=== PATIENT | female | born 1935 | race Caucasian/White ===

== ENCOUNTER → 2021-07-01 14:21 | Outpatient (CLI) | payer MEDICARE, SELFPAY ==
[2021-07-01 16:08] LABS: Hemoglobin A1C 6.2 % (4.0-6.0)
[2021-07-01 16:25] LABS: Chloride 102 mmol/L (98-107); Potassium 4.3 mmoL/L (3.5-5.1); Sodium 139 mmol/L (136-145)
[2021-07-01 16:27] LABS: Alanine Aminotransferase 16 U/L (12-78); Aspartate Amino Transferase 34 U/L (14-36); Blood Urea Nitrogen 18 mg/dl (7-17); Estimated Glomerular Filt Rate 80 ml/min (>60); GFR (African American) 96 ML/MIN (>60)
[2021-07-01 16:28] LABS: Albumin/Globulin Ratio 1.5 (1.1-1.8); Alkaline Phosphatase 51 U/L (38-126); Anion Gap 10.3 mEq/L (5-15); Bilirubin,Total 0.3 mg/dl (0.2-1.3); Calcium 9.7 mg/dl (8.4-10.2); Carbon Dioxide 31 mmol/L (22.0-30.0); Chol/HDL Ratio 3.1 (1-3.5); Cholesterol 201 mg/dl (140-200); Globulin 2.6 g/dL (1.3-3.2); Glucose 118 mg/dl (74-100); HDL Cholesterol 64 mg/dl (40-60); Total Protein,Serum 6.6 g/dl (6.3-8.2); Triglycerides 80 mg/dl (30-150); VLDL Cholesterol 16 mg/dL (0-40)
[2021-07-01 16:59] LABS: Thyroid Stimulating Hormone 3.35 uIU/mL (0.465-4.68)
== END ==
PROVIDERS: Visit Provider Internal Medicine
DX: I10 Essential (primary) hypertension (principal); E11.9 Type 2 diabetes mellitus without complications; E78.5 Hyperlipidemia, unspecified; E03.9 Hypothyroidism, unspecified
CPT/HCPCS: 80053; 80061; 83036; 84443

== ENCOUNTER → 2022-01-06 12:23 | Outpatient (CLI) | payer MEDICARE, SELFPAY ==
[2022-01-06 13:35] LABS: Basophils % 0.6 % (0.1-2.0); Eosinophils # 0.1 K/mm3 (0.0-0.4); Eosinophils % 1.8 % (0.1-12.0); Hematocrit 43.4 % (37.0-47.0); Hemoglobin 14.1 g/dL (12.2-16.2); Lymphocytes # 2.3 K/mm3 (0.7-4.5); Lymphocytes % 36.4 % (10-50); Mean Corpuscular HGB Conc 32.4 g/dL (31.8-35.4); Mean Corpuscular Hemoglobin 33.2 pg (27.0-31.2); Mean Corpuscular Volume 102.5 fl (81-99); Mean Platelet Volume 10.3 fl (7.4-10.4); Monocytes # 0.4 K/mm3 (0.1-1.0); Monocytes % 5.9 % (1.7-9.3); Neutrophils # 3.5 K/mm3 (1.8-7.8); Neutrophils % 55.2 % (37.0-80.0); Platelet Count 245 K/mm3 (142-424); Red Blood Count 4.23 M/mm3 (4.20-5.40); White Blood Count 6.3 K/mm3 (4.8-10.8)
[2022-01-06 13:58] LABS: Chloride 105 mmol/L (98-107); Potassium 3.6 mmoL/L (3.5-5.1); Sodium 139 mmol/L (136-145)
[2022-01-06 14:00] LABS: Blood Urea Nitrogen 12 mg/dl (7-17); Estimated Glomerular Filt Rate 80 ml/min (>60); GFR (African American) 96 ML/MIN (>60)
[2022-01-06 14:01] LABS: Alanine Aminotransferase 20 U/L (12-78); Albumin Level 3.9 g/dl (3.5-5.0); Albumin/Globulin Ratio 1.5 (1.1-1.8); Alkaline Phosphatase 48 U/L (38-126); Anion Gap 10.6 mEq/L (5-15); Aspartate Amino Transferase 32 U/L (14-36); Bilirubin,Total 0.4 mg/dl (0.2-1.3); Calcium 9.7 mg/dl (8.4-10.2); Carbon Dioxide 27 mmol/L (22.0-30.0); Chol/HDL Ratio 2.9 (1-3.5); Cholesterol 199 mg/dl (140-200); Globulin 2.6 g/dL (1.3-3.2); Glucose 143 mg/dl (74-100); HDL Cholesterol 69 mg/dl (40-60); Total Protein,Serum 6.5 g/dl (6.3-8.2); Triglycerides 77 mg/dl (30-150); VLDL Cholesterol 15 mg/dL (0-40)
[2022-01-06 14:24] LABS: Direct LDL Cholesterol 98.74 mg/dL (100-129)
[2022-01-06 15:25] LABS: Hemoglobin A1C 6.3 % (4.0-6.0)
[2022-01-07 15:07] LABS: Vitamin B12 734 pg/mL (239-931)
== END ==
PROVIDERS: PCP Internal Medicine; Visit Provider Internal Medicine
DX: I10 Essential (primary) hypertension (principal); E11.9 Type 2 diabetes mellitus without complications; E78.5 Hyperlipidemia, unspecified
CPT/HCPCS: 80053; 80061; 82043; 82607; 83036; 85025

== ENCOUNTER → 2022-07-14 12:19 | Outpatient (CLI) | payer MEDICARE, SELFPAY ==
[2022-07-14 13:40] LABS: Hemoglobin A1C 6.3 % (4.0-6.0)
[2022-07-14 14:53] LABS: Alanine Aminotransferase 30 U/L (12-78); Albumin Level 4.1 g/dl (3.5-5.0); Albumin/Globulin Ratio 1.7 (1.1-1.8); Alkaline Phosphatase 66 U/L (38-126); Anion Gap 9.3 mEq/L (5-15); Aspartate Amino Transferase 36 U/L (14-36); Bilirubin,Total 0.3 mg/dl (0.2-1.3); Blood Urea Nitrogen 19 mg/dl (7-17); Calcium 9.7 mg/dl (8.4-10.2); Carbon Dioxide 31 mmol/L (22.0-30.0); Chloride 104 mmol/L (98-107); Chol/HDL Ratio 2.7 (1-3.5); Cholesterol 196 mg/dl (140-200); Estimated Glomerular Filt Rate 68 ml/min (>60); GFR (African American) 82 ML/MIN (>60); Globulin 2.4 g/dL (1.3-3.2); Glucose 107 mg/dl (74-100); HDL Cholesterol 72 mg/dl (40-60); Potassium 4.3 mmoL/L (3.5-5.1); Sodium 140 mmol/L (136-145); Total Protein,Serum 6.5 g/dl (6.3-8.2); Triglycerides 61 mg/dl (30-150); VLDL Cholesterol 12 mg/dL (0-40)
== END ==
PROVIDERS: PCP Internal Medicine; Visit Provider Internal Medicine
DX: E11.9 Type 2 diabetes mellitus without complications (principal); E78.5 Hyperlipidemia, unspecified; I10 Essential (primary) hypertension; F41.9 Anxiety disorder, unspecified
CPT/HCPCS: 80053; 80061; 83036

== ENCOUNTER → 2023-01-12 13:35 | Outpatient (CLI) | payer MEDICARE, SELFPAY ==
[2023-01-12 15:19] LABS: Basophils % 0.4 % (0.1-2.0); Eosinophils # 0.1 K/mm3 (0.0-0.4); Hematocrit 42.3 % (37.0-47.0); Hemoglobin 13.7 g/dL (12.2-16.2); Lymphocytes # 2.1 K/mm3 (0.7-4.5); Lymphocytes % 35.2 % (10-50); Mean Corpuscular HGB Conc 32.3 g/dL (31.8-35.4); Mean Corpuscular Hemoglobin 32.2 pg (27.0-31.2); Mean Corpuscular Volume 99.7 fl (81-99); Mean Platelet Volume 10.6 fl (7.4-10.4); Monocytes # 0.4 K/mm3 (0.1-1.0); Monocytes % 6.6 % (1.7-9.3); Neutrophils # 3.4 K/mm3 (1.8-7.8); Neutrophils % 55.7 % (37.0-80.0); Platelet Count 231 K/mm3 (142-424); Red Blood Count 4.25 M/mm3 (4.20-5.40); Red Cell Distribution Width 12.7 % (11.5-17.5)
[2023-01-12 15:27] LABS: Creatinine,Urine Random 105 mg/dL (Not Estab.)
[2023-01-12 15:33] LABS: Microalbumin/Creatinine Ratio 9.5
[2023-01-12 15:52] LABS: Alanine Aminotransferase 28 U/L (12-78); Albumin Level 3.9 g/dl (3.5-5.0); Albumin/Globulin Ratio 1.5 (1.1-1.8); Alkaline Phosphatase 50 U/L (38-126); Anion Gap 13.7 mEq/L (5-15); Aspartate Amino Transferase 34 U/L (14-36); Bilirubin,Total 0.6 mg/dl (0.2-1.3); Blood Urea Nitrogen 20 mg/dl (7-17); Calcium 9.3 mg/dl (8.4-10.2); Carbon Dioxide 28 mmol/L (22.0-30.0); Chloride 104 mmol/L (98-107); Cholesterol 183 mg/dl (140-200); Estimated Glomerular Filt Rate 59 ml/min (>60); GFR (African American) 72 ML/MIN (>60); Globulin 2.6 g/dL (1.3-3.2); Glucose 115 mg/dl (74-100); HDL Cholesterol 62 mg/dl (40-60); Potassium 3.7 mmoL/L (3.5-5.1); Sodium 142 mmol/L (136-145); Total Protein,Serum 6.5 g/dl (6.3-8.2); Triglycerides 85 mg/dl (30-150); VLDL Cholesterol 17 mg/dL (0-40)
[2023-01-12 16:03] LABS: Direct LDL Cholesterol 90.35 mg/dL (100-129)
[2023-01-12 16:20] LABS: Thyroid Stimulating Hormone 1.32 uIU/mL (0.465-4.68)
== END ==
PROVIDERS: PCP Internal Medicine; Visit Provider Internal Medicine
DX: E11.9 Type 2 diabetes mellitus without complications (principal); E03.9 Hypothyroidism, unspecified; E78.5 Hyperlipidemia, unspecified; I10 Essential (primary) hypertension; M15.0 Primary generalized (osteo)arthritis
CPT/HCPCS: 80053; 80061; 82043; 82570; 83036; 84443; 85025

== ENCOUNTER 2023-07-17 23:35 | Emergency (ER) | payer MEDICARE, SELFPAY ==
[2023-07-17 23:45] VITALS: BP 171/84; PULSE 68; RESP 19; TEMP 36.8; O2SAT 98; BMI 22.4
--- NOTE | 2023-07-17 23:52 | [facility].EDGENADL ---
Discharge Plan Disposition Patient Disposition: Home, Self-Care Prescriptions Prescriptions: No Action losartan-hydrochlorothiazide 100-25 mg tablet 1 tab PO DAILY Patient Comments: TAKE 1 TABLET BY MOUTH DAILY levothyroxine 88 mcg tablet 88 mcg PO DAILY Patient Comments: TAKE 1 TABLET BY MOUTH EVERY MORNING FOR THYROID Referrals Follow up/Referrals: Emiliano Baltazar MD [Primary Care Provider] - See instructions Activity Restrictions/Add. Instructions Additional Instructions/Restrictions: Please follow-up with your primary care provider. Please return to the emergency department if you develop any new or worsening symptoms or become concerned for your health. Clinical Impressions Clinical Impression: Asymptomatic hypertension Discharge ED Provider: Chris Navarro General Adult HPI General Chief complaint: Recheck/Abnormal Lab/Rx Stated complaint: high blood pressure Time Seen by Provider: 07/17/23 23:44 Mode of Arrival: Family Vehicle Source of Information: Patient Limitations: No Limitations Description of Symptoms (Recalled from ER Triage Doc. by RN): 87 yo female presents with CC high blood pressure. States she took her bp at home and it was >200 on the top number several times. Advised staff she had seen an SENIOR ACCOUNTANT earlier who discussed what constitued a hypertensive emergency and thought she should come in for eval. States I just need something to calm me down . History of Present Illness HPI narrative: 87-year-old female, history of hypertension and hypothyroidism presents with hypertension. She reports that she got some bad news recently and it has made her upset. She reports that her blood pressure has been up and down over the last couple of days. She reports specifically that it was been over 200 earlier today and so she came in for further evaluation. She denies any headache vision change chest pain shortness of breath lower extremity edema or any other associated symptoms. She reports that she has been stable on her blood pressure medication for a long time. She takes losartan/HCTZ. She has a follow-up appointment scheduled with her PCP on Thursday. Related Data Home Medications Medication Instructions Recorded Confirmed levothyroxine 88 mcg tablet 88 mcg PO DAILY 07/15/23 07/15/23 losartan 100 1 tab PO DAILY 07/15/23 07/15/23 mg-hydrochlorothiazide 25 mg tablet Allergies Allergy/AdvReac Type Severity Reaction Status Date / Time No Known Allergies Allergy Verified 07/15/23 14:44 [facility] Disclaimer: The information contained in this section may have been updated after the patient was seen, as this information can be updated by other users. Medical History (Updated 07/17/23 @ 23:52 by Chris Navaror MD) Hypertension Hyperthyroidism Surgical History (Updated 07/15/23 @ 14:50 by Charlee Harrison) No significant past surgical history Family History (Updated 07/15/23 @ 14:50 by Charlee Harrison) Other No significant family history Social History (Updated 07/15/23 @ 14:50 by Charlee Harrison) Smoking Status: Unknown if ever smoked alcohol intake: never current occupational status: retired Travel in the last 8 weeks: None ROS Obtained: Yes All systems reviewed & no additional complaints except as documented Physical Exam General General appearance: alert and in no apparent distress Head Head exam: atraumatic and normocephalic Eye Eye exam: Present normal appearance, PERRL and EOMI ENT ENT exam: Present normal oropharynx and normal external ear exam Neck Neck exam: Present normal inspection and full ROM Chest Chest inspection: Present normal inspection and symmetric chest wall rise; Absent tenderness Respiratory Respiratory exam: Present normal lung sounds bilaterally; Absent respiratory distress Cardiovascular Cardiovascular exam: Present regular rate and normal rhythm Abdominal Exam Abdominal exam: Present soft; Absent distenti
[2023-07-18 00:33] VITALS: BP 170/69; PULSE 75; RESP 17; TEMP 36.8; O2SAT 98
== END 2023-07-18 00:35 | disposition home or self-care (01) ==
PROVIDERS: Emergency Provider Emergency Medicine; PCP Internal Medicine
DX: I10 Essential (primary) hypertension (principal); E03.9 Hypothyroidism, unspecified
CPT/HCPCS: 99282

== ENCOUNTER → 2023-07-20 13:27 | Outpatient (CLI) | payer MEDICARE, SELFPAY ==
[2023-07-20 17:13] LABS: Alanine Aminotransferase 33 U/L (12-78); Albumin Level 4.3 g/dl (3.5-5.0); Albumin/Globulin Ratio 1.7 (1.1-1.8); Alkaline Phosphatase 58 U/L (38-126); Anion Gap 9.8 mEq/L (5-15); Aspartate Amino Transferase 48 U/L (14-36); Bilirubin,Total 0.6 mg/dl (0.2-1.3); Blood Urea Nitrogen 12 mg/dl (7-17); Carbon Dioxide 29 mmol/L (22.0-30.0); Chloride 98 mmol/L (98-107); Chol/HDL Ratio 2.2 (1-3.5); Cholesterol 172 mg/dl (140-200); Estimated Glomerular Filt Rate 59 ml/min (>60); GFR (African American) 72 ML/MIN (>60); Globulin 2.6 g/dL (1.3-3.2); Glucose 123 mg/dl (74-100); HDL Cholesterol 80 mg/dl (40-60); Potassium 3.8 mmoL/L (3.5-5.1); Sodium 133 mmol/L (136-145); Total Protein,Serum 6.9 g/dl (6.3-8.2); Triglycerides 82 mg/dl (30-150); VLDL Cholesterol 16 mg/dL (0-40)
[2023-07-20 17:25] LABS: Direct LDL Cholesterol 81.88 mg/dL (100-129)
== END ==
PROVIDERS: PCP Internal Medicine; Visit Provider Internal Medicine
DX: E11.9 Type 2 diabetes mellitus without complications (principal); I10 Essential (primary) hypertension; E78.5 Hyperlipidemia, unspecified; M15.0 Primary generalized (osteo)arthritis; E03.9 Hypothyroidism, unspecified
CPT/HCPCS: 80053; 80061; 83036

== ENCOUNTER 2023-09-07 14:45 | Outpatient (CLI) | payer MEDICARE, SELFPAY ==
[2023-09-07 16:14] LABS: Sodium 132 mmol/L (136-145)
== END 2023-09-07 23:59 ==
LOC: LAB.DROPOF 14:47
PROVIDERS: PCP Internal Medicine; Visit Provider Internal Medicine
DX: E87.1 Hypo-osmolality and hyponatremia (principal)
CPT/HCPCS: 84295

== ENCOUNTER 2023-10-05 12:57 | Outpatient (CLI) | payer MEDICARE, SELFPAY ==
[2023-10-05 13:43] LABS: Sodium 135 mmol/L (136-145)
== END 2023-10-05 23:59 ==
PROVIDERS: PCP Internal Medicine; Visit Provider Internal Medicine
DX: E87.1 Hypo-osmolality and hyponatremia (principal)
CPT/HCPCS: 84295

== ENCOUNTER 2024-01-18 15:00 | Outpatient (CLI) | payer MEDICARE, SELFPAY ==
[2024-01-18 15:03] LABS: Alanine Aminotransferase 18 U/L (12-78); Albumin/Globulin Ratio 1.6 (1.1-1.8); Alkaline Phosphatase 53 U/L (38-126); Anion Gap 11.7 mEq/L (5-15); Aspartate Amino Transferase 31 U/L (14-36); Bilirubin,Total 0.8 mg/dl (0.2-1.3); Blood Urea Nitrogen 14 mg/dl (7-17); Calcium 9.5 mg/dl (8.4-10.2); Carbon Dioxide 29 mmol/L (22.0-30.0); Chloride 105 mmol/L (98-107); Chol/HDL Ratio 3.2 (1-3.5); Cholesterol 208 mg/dl (140-200); Estimated Glomerular Filt Rate 79 ml/min (>60); GFR (African American) 96 ML/MIN (>60); Globulin 2.5 g/dL (1.3-3.2); Glucose 110 mg/dl (74-100); HDL Cholesterol 66 mg/dl (40-60); Potassium 3.7 mmoL/L (3.5-5.1); Sodium 142 mmol/L (136-145); Total Protein,Serum 6.5 g/dl (6.3-8.2); Triglycerides 98 mg/dl (30-150); VLDL Cholesterol 20 mg/dL (0-40)
[2024-01-18 15:22] LABS: Direct LDL Cholesterol 96.45 mg/dL (100-129)
[2024-01-18 16:12] LABS: Hemoglobin A1C 5.7 % (4.0-6.0)
== END 2024-01-18 23:59 | disposition home or self-care (01) ==
LOC: LAB.DROPOF 15:01
PROVIDERS: PCP Internal Medicine; Visit Provider Internal Medicine
DX: E11.49 Type 2 diabetes mellitus with other diabetic neurological complication (principal); I10 Essential (primary) hypertension; E78.5 Hyperlipidemia, unspecified
CPT/HCPCS: 80053; 80061; 83036

== ENCOUNTER 2024-07-18 11:42 | Outpatient (CLI) | payer MEDICARE, SELFPAY ==
[2024-07-18 14:30] LABS: Basophils % 0.5 % (0.1-2.0); Eosinophils # 0.1 K/mm3 (0.0-0.4); Eosinophils % 2.2 % (0.1-12.0); Hematocrit 44.2 % (37.0-47.0); Hemoglobin 14.8 g/dL (12.2-16.2); Lymphocytes # 2.1 K/mm3 (0.7-4.5); Mean Corpuscular HGB Conc 33.4 g/dL (31.8-35.4); Mean Corpuscular Hemoglobin 33.2 pg (27.0-31.2); Mean Corpuscular Volume 99.6 fl (81-99); Mean Platelet Volume 9.2 fl (7.4-10.4); Monocytes # 0.3 K/mm3 (0.1-1.0); Monocytes % 5.5 % (1.7-9.3); Neutrophils # 3.1 K/mm3 (1.8-7.8); Neutrophils % 54.8 % (37.0-80.0); Platelet Count 219 K/mm3 (142-424); Red Blood Count 4.44 M/mm3 (4.20-5.40); Red Cell Distribution Width 13.1 % (11.5-17.5); White Blood Count 5.6 K/mm3 (4.8-10.8)
[2024-07-18 15:39] LABS: Albumin Level 3.8 g/dl (3.5-5.0); Chloride 105 mmol/L (98-107); Creatinine,Urine Random 112 mg/dL (Not Estab.); Potassium 3.9 mmoL/L (3.5-5.1); Sodium 134 mmol/L (136-145)
[2024-07-18 15:40] LABS: Microalbumin/Creatinine Ratio 11.3
[2024-07-18 15:42] LABS: Alanine Aminotransferase 31 U/L (12-78); Albumin/Globulin Ratio 1.7 (1.1-1.8); Alkaline Phosphatase 62 U/L (38-126); Anion Gap 2.9 mEq/L (5-15); Aspartate Amino Transferase 40 U/L (14-36); Bilirubin,Total 0.5 mg/dl (0.2-1.3); Blood Urea Nitrogen 13 mg/dl (7-17); Calcium 8.8 mg/dl (8.4-10.2); Carbon Dioxide 30 mmol/L (22.0-30.0); Estimated Glomerular Filt Rate 68 ml/min (>60); GFR (African American) 82 ML/MIN (>60); Globulin 2.3 g/dL (1.3-3.2); Glucose 106 mg/dl (74-100); Total Protein,Serum 6.1 g/dl (6.3-8.2)
[2024-07-18 16:12] LABS: Thyroid Stimulating Hormone 1.08 uIU/mL (0.465-4.68)
[2024-07-18 17:51] LABS: Hemoglobin A1C 6.2 % (4.0-6.0)
== END 2024-07-18 23:59 | disposition home or self-care (01) ==
LOC: LAB.DROPOF 07-19 11:43
PROVIDERS: PCP Internal Medicine; Visit Provider Internal Medicine
DX: I10 Essential (primary) hypertension (principal); E78.5 Hyperlipidemia, unspecified; E03.9 Hypothyroidism, unspecified; E11.9 Type 2 diabetes mellitus without complications
CPT/HCPCS: 80053; 82043; 82570; 83036; 84443; 85025

== ENCOUNTER 2025-01-16 14:38 | Outpatient (CLI) | payer MEDICARE, SELFPAY ==
[2025-01-16 15:30] LABS: Anion Gap 6.2 mEq/L (5-15); Blood Urea Nitrogen 23 mg/dl (7-17); Calcium 9.5 mg/dl (8.4-10.2); Carbon Dioxide 30 mmol/L (22.0-30.0); Chloride 105 mmol/L (98-107); Estimated Glomerular Filt Rate 79 ml/min (>60); GFR (African American) 96 ML/MIN (>60); Glucose 132 mg/dl (74-100); Potassium 4.2 mmoL/L (3.5-5.1); Sodium 137 mmol/L (136-145)
[2025-01-16 16:17] LABS: Hemoglobin A1C 6.1 % (4.0-6.0)
== END 2025-01-16 23:59 | disposition home or self-care (01) ==
LOC: LAB.DROPOF 14:38
PROVIDERS: PCP Internal Medicine; Visit Provider Internal Medicine
DX: E11.42 Type 2 diabetes mellitus with diabetic polyneuropathy (principal); I10 Essential (primary) hypertension; E87.1 Hypo-osmolality and hyponatremia
CPT/HCPCS: 80048; 83036

== ENCOUNTER 2025-07-25 08:31 | Outpatient (CLI) | payer MEDICARE, SELFPAY ==
[2025-07-25 13:40] LABS: Hematocrit 44.2 % (37.0-47.0); Hemoglobin 14.3 g/dL (12.2-16.2); Immature Granulocytes % 0.4 %; Mean Corpuscular HGB Conc 32.4 g/dL (31.8-35.4); Mean Corpuscular Hemoglobin 31.5 pg (27.0-31.2); Mean Corpuscular Volume 97.4 fl (81-99); Nucleated Red Blood Cells % 0 %; Platelet Count 218 K/mm3 (142-424); Red Blood Count 4.54 M/mm3 (4.20-5.40); Red Cell Distribution Width-SD 46.9 fL; White Blood Count 5.6 K/mm3 (4.8-10.8)
[2025-07-25 13:56] LABS: Hemoglobin A1C 5.8 % (4.0-6.0)
[2025-07-25 13:58] LABS: Chloride 104 mmol/L (98-107)
[2025-07-25 13:59] LABS: Albumin Level 4.5 g/dl (3.5-5.0); Potassium 4.1 mmoL/L (3.5-5.1); Sodium 140 mmol/L (136-145)
[2025-07-25 14:02] LABS: Alanine Aminotransferase 21 U/L (12-78); Albumin/Globulin Ratio 1.9 (1.1-1.8); Alkaline Phosphatase 58 U/L (38-126); Anion Gap 11.1 mEq/L (5-15); Aspartate Amino Transferase 32 U/L (14-36); Bilirubin,Total 0.7 mg/dl (0.2-1.3); Blood Urea Nitrogen 20 mg/dl (7-17); Calcium 10.0 mg/dl (8.4-10.2); Carbon Dioxide 29 mmol/L (22.0-30.0); Cholesterol 179 mg/dl (140-200); Creatinine,Serum 0.80 mg/dl (0.52-1.04); Estimated Glomerular Filt Rate 68 ml/min (>60); GFR (African American) 82 ML/MIN (>60); Globulin 2.4 g/dL (1.3-3.2); Glucose 119 mg/dl (74-100); Total Protein,Serum 6.9 g/dl (6.3-8.2); Triglycerides 75 mg/dl (30-150)
[2025-07-25 14:03] LABS: HDL Cholesterol 81 mg/dl (40-60)
[2025-07-25 14:33] LABS: Thyroid Stimulating Hormone 0.68 uIU/mL (0.465-4.68)
== END 2025-07-25 23:59 | disposition home or self-care (01) ==
LOC: LAB.DROPOF 07-28 08:33
PROVIDERS: PCP Internal Medicine; Visit Provider Internal Medicine
DX: E78.5 Hyperlipidemia, unspecified (principal); I10 Essential (primary) hypertension; E11.42 Type 2 diabetes mellitus with diabetic polyneuropathy; E87.1 Hypo-osmolality and hyponatremia; E03.9 Hypothyroidism, unspecified
CPT/HCPCS: 80053; 80061; 83036; 84443; 85025